=== PATIENT | female | born 1990 | race African-American/Black ===

== ENCOUNTER 2016-08-13 14:40 | Emergency (ER) | payer OTHER ==
[~2016-08-13] VITALS: Ht 167.6 cm; Wt 118.8 kg
[2016-08-13 15:30] VITALS: BP 160/80
[2016-08-13] MEDS ORDERED: CYCL10TA2 PO (16:16)
[2016-08-13] MEDS ORDERED: METH4TAB2 PO (16:16)
[2016-08-13] MEDS ORDERED: GABA-586 PO (16:16)
[2016-08-13] MEDS ORDERED: HYDR-79 PO (16:16)
--- NOTE | 2016-08-13 16:16 | PHYS DOC ---
Past Medical History Past Medical History: Asthma, Hypertension, Hypothyroid Additional Past Medical Histor: OBESE Past Surgical History: Cholecystectomy Alcohol Use: Rarely Drug Use: None Adult General Chief Complaint Chief Complaint: OTHER COMPLAINTS HPI HPI Patient is a 26 year old female who presents with sensation of numbness to the right upper extremity as well as moderate pain to right upper extremity that began last April when she fell down. Patient states she has been following up with a local clinic who referred her to a neck specialist, she states she has an appointment on and she could not wait until then. Patient denies any new injuries. She is requesting a note for work something for her pain. Review of Systems Review of Systems Constitutional: Denies fever or chills [] Eyes: Denies change in visual acuity, redness, or eye pain [] HENT: Denies nasal congestion or sore throat [] Musculoskeletal: Right upper extremity pain and numbness Integument: Denies rash or skin lesions [] Neurologic: Denies headache, focal weakness or sensory changes [] Endocrine: Denies polyuria or polydipsia [] Allergies Allergies Allergies Coded Allergies Type Severity Reaction Last Updated Verified acetaminophen Allergy Intermediate 08/13/16 Yes chocolate flavor Allergy Intermediate hives 08/08/14 No coconut oil Allergy Intermediate swelling 08/08/14 No Physical Exam Physical Exam Constitutional: Well developed, well nourished, no acute distress, non-toxic appearance. [] HENT: Normocephalic, atraumatic, bilateral external ears normal, oropharynx moist, no oral exudates, nose normal. [] Eyes: PERRLA, EOMI, conjunctiva normal, no discharge. [] Neck: Normal range of motion, no tenderness, supple, no stridor. [] Skin: Warm, dry, no erythema, no rash. [] Back: No tenderness, no CVA tenderness. [] Extremities: Right upper extremity with no deformity. Full range of motion to the right upper extremity. Adequate sensation to the right upper extremity. +2 right radial pulse. Cap refill less than 2 seconds the right upper extremity. Adequate ulna radial and medial sensation to the right upper extremity. Neurologic: Alert and oriented X 3, normal motor function, normal sensory function, no focal deficits noted. [] Psychologic: Affect normal, judgement normal, mood normal. [] Current Patient Data Vital Signs Vital Signs Date Time Temp Pulse Resp B/P Pulse Ox O2 Delivery O2 Flow Rate FiO2 08/13/16 15:30 98.3 94 18 100 Room Air 98.3 EKG EKG [] Radiology/Procedures Radiology/Procedures [] Course & Med Decision Making Course & Med Decision Making Pertinent Labs and Imaging studies reviewed. (See chart for details) Patient is in the ED with complaints of what sounds like cervical radiculopathy after an injury she sustained last year April. She's been followed up with a local clinic and has been referred to a neck doctor, she has an appointment on . She would like some pain relief to take until then, she would also like a note for work. She was given pain medicine including gabapentin and a note for work. She was provided return precautions. She was discharged in stable condition. Dragon Disclaimer Dragon Disclaimer This electronic medical record was generated, in whole or in part, using a voice recognition dictation system. Departure Departure Impression: Primary Impression: Cervical radiculopathy Disposition: HOME, SELF-CARE Condition: STABLE Referrals: NO PCP (PCP) ARASH MARTI MD See him if you need another neck doctor Patient Instructions: Cervical Radiculopathy, [id number] Additional Instructions: You were seen for cervical radiculopathy which causes a sensation of numbness and tingling as well as pain especially to the upper extremities. You can apply heat or ice to the neck or the affected region. Take the prescribed medicines as ordered. Follow-up with your own doctor on or the provided doctor. Come back to the emergency room if symptoms worsen. Scripts Cyclobenzaprine Hcl 10 Mg Tablet1 Tab PO TID #30 TAB Prov:KESHAVAGNES AGNES 08/13/16 Methylprednisolone (Medrol)4 Mg Tab.ds.pk1 Pkg PO UD #1 PKG Prov:CHELLESTEPHONAGNES ADHESIVE BANDAGE MAKING OPERATOR 08/13/16 Hydrocodone/Ibuprofen (Hydrocodone-Ibuprofen 7.5-200 )1 Each Tablet1 Tab PO PRN Q6HRS PRN PAIN #10 TAB Ref 0 Prov:KESHAVAGNES ADHESIVE BANDAGE MAKING OPERATOR 08/13/16 Gabapentin 300 Mg [id number] Mg PO TID #30 CAP Prov:AGNES PARR ADHESIVE BANDAGE MAKING OPERATOR 08/13/16 AGNES PARR APRN Aug 13, 2016 16:16
== END 2016-08-13 16:31 | disposition home or self-care (01) ==
LOC: ER 14:44
DX: M54.12 Radiculopathy, cervical region (principal); J45.909 Unspecified asthma, uncomplicated; I10 Essential (primary) hypertension; E03.9 Hypothyroidism, unspecified; E66.9 Obesity, unspecified; Z68.41 Body mass index [BMI] 40.0-44.9, adult; Z91.018 Allergy to other foods; Z88.8 Allergy status to other drugs, medicaments and biological substances
CPT/HCPCS: 99283

== ENCOUNTER 2017-04-06 03:56 | Emergency (ER) | payer OTHER ==
[~2017-04-06] VITALS: Ht 167.6 cm; Wt 122.5 kg
[~2017-04-06 03:56] MED LIST: CYCL10TA2 PO; GABA-586 PO; HYDR-79 PO; METH4TAB2 PO
[2017-04-06] MEDS ORDERED: cloNIDine HCL 0.1 MG TABLET PO ONE (04:15)
--- NOTE | 2017-04-06 04:20 | PHYS DOC ---
Past Medical History Past Medical History: Asthma, Hypertension, Hypothyroid Additional Past Medical Histor: OBESE Past Surgical History: Cholecystectomy Alcohol Use: Rarely Drug Use: None Adult General Chief Complaint Chief Complaint: MULTIPLE COMPLAINTS HPI HPI Patient is a 26 year old F who presents with headache and hypertension. Patient states that throughout the day she didn't have an elevated blood pressures headache and some right arm pain. Patient took her blood pressure this this morning and it was elevated therefore she came the emergency room. In the emergency room patient's blood pressure is 245/128. Patient states the only medication she takes is hydrochlorothiazide and occasionally a muscle relaxer. Patient denies any fevers. Patient denies any neck pain. Patient denies any nausea/vomiting/diarrhea. Patient has no complaints. Review of Systems Review of Systems GEN: Denies fevers, chills, sweats HEENT: Denies blurred vision, sore throat CV: Denies chest pain RESP: Denies shortness of air, cough GI: Denies n/v/d NEURO: Headache MSK: Right arm pain Current Medications Current Medications Current Medications Medications (Trade) Dose Ordered Sig/Suha Start Time Stop Time Status Last Admin Dose Admin Amlodipine Besylate (Norvasc) 5 mg 1X ONCE 04/06/17 07:45 04/06/17 07:46 Clonidine HCl (Catapres) 0.2 mg 1X ONCE 04/06/17 04:15 04/06/17 04:37 DC 04/06/17 04:19 0.2 MG Info (Do NOT chart on this entry -- for MONITORING) 1 each PRN DAILY PRN 04/06/17 06:45 04/08/17 06:44 Iohexol (Omnipaque 300 Mg/ml) 75 ml 1X ONCE 04/06/17 06:30 04/06/17 06:31 DC Iohexol (Omnipaque 350 Mg/ml) 90 ml 1X ONCE 04/06/17 06:15 04/06/17 06:26 DC 04/06/17 06:22 90 ML Allergies Allergies Allergies Coded Allergies Type Severity Reaction Last Updated Verified acetaminophen Allergy Intermediate 08/13/16 Yes chocolate flavor Allergy Intermediate hives 08/08/14 No coconut oil Allergy Intermediate swelling 08/08/14 No Physical Exam Physical Exam GEN.: No apparent distress. Alert and oriented. HEENT: Head is normocephalic, atraumatic NECK: Supple. LUNGS: CTAB. HEART: RRR, S1, S2 present. Peripheral pulses intact ABDOMEN: Soft, nontender. Positive bowel sounds. EXTREMITIES: Without any cyanosis. NEUROLOGIC: Normal speech, normal tone PSYCHIATRIC: Normal affect, normal mood. SKIN: No ulcerations Current Patient Data Vital Signs Vital Signs Date Time Temp Pulse Resp B/P (MAP) Pulse Ox O2 Delivery O2 Flow Rate FiO2 04/06/17 06:36 71 18 168/79 (108) 100 Room Air 04/06/17 04:14 97.4 97.4 Lab Values Laboratory Tests Test 04/06/17 03:15 04/06/17 03:39 04/06/17 04:25 White Blood Count 16.4 x10^3/uL (4.0-11.0) H Red Blood Count 4.55 x10^6/uL (3.50-5.40) Hemoglobin 11.8 g/dL (12.0-15.5) L Hematocrit 37.1 % (36.0-47.0) Mean Corpuscular Volume 82 fL (79-100) Mean Corpuscular Hemoglobin 26 pg (25-35) Mean Corpuscular Hemoglobin Concent 32 g/dL (31-37) Red Cell Distribution Width 16.3 % (11.5-14.5) H Platelet Count 367 x10^3/uL (140-400) Neutrophils (%) (Auto) 72 % (31-73) Lymphocytes (%) (Auto) 20 % (24-48) L Monocytes (%) (Auto) 6 % (0-9) Eosinophils (%) (Auto) 1 % (0-3) Basophils (%) (Auto) 1 % (0-3) Neutrophils # (Auto) 11.9 x10^3uL (1.8-7.7) H Lymphocytes # (Auto) 3.3 x10^3/uL (1.0-4.8) Monocytes # (Auto) 1.0 x10^3/uL (0.0-1.1) Eosinophils # (Auto) 0.2 x10^3/uL (0.0-0.7) Basophils # (Auto) 0.1 x10^3/uL (0.0-0.2) Sodium Level 140 mmol/L (136-145) Potassium Level 3.6 mmol/L (3.5-5.1) Chloride Level 101 mmol/L (98-107) Carbon Dioxide Level 30 mmol/L (21-32) Anion Gap 9 (6-14) Blood Urea Nitrogen 9 mg/dL (7-20) Creatinine 0.7 mg/dL (0.6-1.0) Estimated GFR (Cockcroft-Gault) 122.4 BUN/Creatinine Ratio 13 (6-20) Glucose Level 102 mg/dL (70-99) H Calcium Level 9.8 mg/dL (8.5-10.1) Total Bilirubin 0.6 mg/dL (0.2-1.0) Aspartate Amino Transferase (AST) 17 U/L (15-37) Alanine Aminotransferase (ALT) 29 U/L (14-59) Alkaline Phosphatase 102 U/L (46-116) Troponin I Quantitative < 0.017 ng/mL (0.000-0.055) Total Protein 8.1 g/dL (6.4-8.2) Albumin 4.0 g/dL (3.4-5.0) Albumin/Globulin Ratio 1.0 (1.0-1.7) POC Urine HCG, Qualitative Hcg negative (Negative) Urine Collection Type Unknown Urine Color Yellow Urine Clarity Clear Urine pH 6.0 Urine Specific [place] 1.010 Urine Protein Negative mg/dL (NEG-TRACE) Urine Glucose (UA) Negative mg/dL (NEG) Urine Ketones (Stick) Negative mg/dL (NEG) Urine Blood Negative (NEG) Urine Nitrite Negative (NEG) Urine Bilirubin Negative (NEG) Urine Urobilinogen Dipstick 0.2 mg/dL (0.2 mg/dL) Urine Leukocyte Esterase Negative (NEG) Urine RBC Occ /HPF (0-2) Urine WBC 1-4 /HPF (0-4) Urine Squamous Epithelial Cells Mod /LPF Urine Bacteria Moderate /HPF (0-FEW) Urine Mucus Slight /LPF Laboratory Tests 04/06/17 03:15 Laboratory Tests 04/06/17 03:15 EKG EKG 0412: EKG shows normal sinus rhythm rate of 75 no STEMI[] Radiology/Procedures Radiology/Procedures CT head unremarkable[] Impressions: [facility] [address] [place], [place] [id number] IMAGING REPORT Signed PATIENT: ELAINE PIEDRA ACCOUNT: [id number] : 1990 LOCATION: ER AGE: 26 SEX: F EXAM STATUS: REG ER ORD. PHYSICIAN: JHON DE DIOS DO REASON: chest pain, r/o dissection PROCEDURE: CT ANGIOGRAPHY CHEST CT arteriogram of the chest before and after contrast. HISTORY: Chest pain CT arteriogram was done using 90 mL of Isovue-370 contrast. Coronal MIP images were reconstructed as were three-dimensional reconstructions using the workstation. Precontrast images show no intramural hematoma in the aorta. The aorta is normal in diameter. Visualized portions liver and spleen are normal. Lungs are free of infiltrates. There is no effusion. Postcontrast images show the thyroid is homogeneous. There is no mediastinal adenopathy. The aorta is normal in appearance without an aneurysm or dissection. The origins of the great vessels are patent. Celiac and superior mesenteric arteries are patent in the upper abdomen. Patient's had a cholecystectomy. Adrenal glands are normal. A pulmonary embolus is not identified. IMPRESSION: 1. No aortic aneurysm or dissection. 2. Lungs are free of infiltrates. 3. Negative for pulmonary embolus. PQRS Compliance Statement: One or more of the following individualized dose reduction techniques were utilized for this examination: 1. Automated exposure control 2. Adjustment of the mA and/or kV according to patient size 3. Use of iterative reconstruction technique Electronically signed by: Jevon Ibarra MD (04/06/2017 7:11 AM) [facility] DICTATED and SIGNED BY: JEVON IBARRA MD DATE: 04/06/17705 CC: TALA JESUS DO; NO PCP; JHON DE DIOS DO ~ Course & Med Decision Making Course & Med Decision Making Pertinent Labs and Imaging studies reviewed. (See chart for details) 0600: Patient was signed out to Dr. Jesus to follow-up on CT scan and final disposition, patient was updated on plan to get the CT angios the chest to rule out dissection Patient's imaging did not reveal any concerning findings. Patient resting comfortably with resolution of symptoms at time of my arrival in the ED. Patient 's blood pressure initially improved 130s over 80s, after receiving Catapres, and then to 160s over 70s. Heart rate is in the 80s and 70s, patient is resting comfortably with continued full resolution of symptoms. Consistent with hypertension. Patient states that she has been under significant stress, and believes that was the cause for her blood pressure to be elevated, she states she is taking hydrochlorothiazide as directed, but as stated was only adjusted about 3 days ago. Is taking 25 mg once daily. After discussion at bedside, regarding initiating an additional medication in the ED, versus waiting to follow-up with primary care provider, patient is agreeable with plan to start low-dose Norvasc in addition to her hydrochlorothiazide, she states that she'll be able to follow-up with her primary care provider next week, has Saturday and Saturday off. Also noted to have leukocytosis of 16.4 in the ED, no left shift or bandemia, other cell lines are normal, did discuss with patient, she has no infectious symptoms, or identification infectious source on her labs and imaging. 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 Patient to discuss these results with her primary care provider, to return to the ED for concerning symptoms as discussed. Patient given first dose of Norvasc 5 mg without issue in the ED. We discussed concerning symptoms that prompt return to the emergency department, and stress reduction strategies. Patient voiced understanding and agreement with plan as stated, discharged home in stable condition with plan, precautions, and prescription as stated above. Dragon Disclaimer Dragon Disclaimer This electronic medical record was generated, in whole or in part, using a voice recognition dictation system. Departure Impression: Primary Impression: Hypertension Additional Impression: Leukocytosis Disposition: HOME, SELF-CARE Condition: IMPROVED Referrals: NO PCP (PCP) Scripts Amlodipine Besylate (NORVASC) 5 Mg Tablet 1 TAB PO DAILY, #15 TAB 0 Refills Prov: TALA JESUS DO 04/06/17 Departure Departure Impression: Primary Impression: Hypertension Additional Impression: Leukocytosis Disposition: HOME, SELF-CARE Condition: IMPROVED Referrals: NO PCP (PCP) Scripts Amlodipine Besylate (NORVASC) 5 Mg Tablet 1 TAB PO DAILY, #15 TAB 0 Refills Prov: TALA JESUS DO 04/06/17 Problem Qualifiers JHON DE DIOS DO Apr 06, 2017 04:20 ANN MARIETALA WADDELL DO Apr 06, 2017 07:47
[2017-04-06 04:24] LABS: BASO # 0.1 x10^3/uL (0.0-0.2); BASO % 1 % (0-3); EOS % 1 % (0-3); HEMATOCRIT 37.1 % (36.0-47.0); HEMOGLOBIN 11.8 g/dL (12.0-15.5); LYMPH # 3.3 x10^3/uL (1.0-4.8); LYMPH % 20 % (24-48); MEAN CORPUSCULAR HEMOGLOBIN 26 pg (25-35); MEAN CORPUSCULAR HGB CONC 32 g/dL (31-37); MEAN CORPUSCULAR VOLUME 82 fL (79-100); MONO % 6 % (0-9); NEUT % 72 % (31-73); PLATELET COUNT 367 x10^3/uL (140-400); RED BLOOD COUNT 4.55 x10^6/uL (3.50-5.40); RED CELL DISTRIBUTION WIDTH 16.3 % (11.5-14.5); WHITE BLOOD COUNT 16.4 x10^3/uL (4.0-11.0)
[2017-04-06 04:35] LABS: CALCIUM 9.8 mg/dL (8.5-10.1); CREATININE 0.7 mg/dL (0.6-1.0); GFR 122.4; POTASSIUM 3.6 mmol/L (3.5-5.1)
[2017-04-06 04:41] LABS: TOTAL BILIRUBIN 0.6 mg/dL (0.2-1.0); TOTAL PROTEIN 8.1 g/dL (6.4-8.2)
--- NOTE | 2017-04-06 05:00 | RAD ---
INDICATION: headache; hypertension COMPARISON: None. TECHNIQUE: Axial CT images obtained through the head without intravenous contrast. One or more of the following individualized dose reduction techniques were utilized for this examination: 1. Automated exposure control; 2. Adjustment of the mA and/or kV according to patient size; 3. Use of iterative reconstruction technique. FINDINGS: No intracranial hemorrhage. No midline shift. Basal cisterns patent. Ventricles and sulci are unremarkable. No acute osseous abnormality. Orbits and paranasal sinuses unremarkable. IMPRESSION: 1. No acute intracranial hemorrhage. Electronically signed by: Hussain Phillip MD (04/06/2017 4:56 AM) [facility]
[2017-04-06 05:04] LABS: BILIRUBIN,URINE NEGATIVE (NEG); GLUCOSE,URINE NEGATIVE (NEG); NITRITE,URINE NEGATIVE (NEG); PROTEIN,URINE NEGATIVE (NEG-TRACE); UROBILINOGEN,URINE 0.2 mg/dL (0.2 mg/dL)
[2017-04-06 05:15] LABS: BACTERIA,URINE MODERATE /HPF (0-FEW); RBC,URINE OCC /HPF (0-2); SQUAMOUS EPITHELIAL CELL,UR MOD /LPF
[2017-04-06] MEDS ORDERED: IOHEXOL 350 MG/ML 100 ML VIAL. IV ONE (06:15)
[2017-04-06] MEDS ORDERED: IOHEXOL 300 MG/ML 75 ML VIAL IV ONE (06:30)
[2017-04-06] MEDS ORDERED: CONTRAST GIVEN MC PRN (06:45)
--- NOTE | 2017-04-06 07:14 | RAD ---
CT arteriogram of the chest before and after contrast. HISTORY: Chest pain CT arteriogram was done using 90 mL of Isovue-370 contrast. Coronal MIP images were reconstructed as were three-dimensional reconstructions using the workstation. Precontrast images show no intramural hematoma in the aorta. The aorta is normal in diameter. Visualized portions liver and spleen are normal. Lungs are free of infiltrates. There is no effusion. Postcontrast images show the thyroid is homogeneous. There is no mediastinal adenopathy. The aorta is normal in appearance without an aneurysm or dissection. The origins of the great vessels are patent. Celiac and superior mesenteric arteries are patent in the upper abdomen. Patient's had a cholecystectomy. Adrenal glands are normal. A pulmonary embolus is not identified. IMPRESSION: 1. No aortic aneurysm or dissection. 2. Lungs are free of infiltrates. 3. Negative for pulmonary embolus. PQRS Compliance Statement: One or more of the following individualized dose reduction techniques were utilized for this examination: 1. Automated exposure control 2. Adjustment of the mA and/or kV according to patient size 3. Use of iterative reconstruction technique Electronically signed by: Jevon Ibarra MD (04/06/2017 7:11 AM) [facility]
--- NOTE | 2017-04-06 07:17 | RAD ---
Portable chest, 04/16/2017: History: Hypertension The heart size and pulmonary vascularity are normal. The lungs are clear. There is no evidence of pleural fluid. IMPRESSION: No acute cardiopulmonary abnormality is detected.
[2017-04-06] MEDS ORDERED: AMLO5TAB4 PO (07:39)
[2017-04-06] MEDS ORDERED: amLODIPine BESYLATE 5 MG TABLET PO ONE (07:45)
[2017-04-06 08:00] VITALS: BP 144/92
--- NOTE | 2017-04-06 10:48 | EKG ---
[facility] [address] [place] [address] Test Date: 2017-04-06 Test Time: 04:10:03 Pat Name: ELAINE PIEDRA Department: Room: Gender: F Dump Grader: : 1990 Requested By: JHON DE DIOS Order Number: [id number] Reading MD: Anjelica Long Measurements Intervals [place] Rate: 75 P: 42 RI: 172 QRS: 4 QRSD: 88 T: 4 QT: 310 QTc: 348 Interpretive Statements SINUS RHYTHM NORMAL ECG Electronically Signed On 04-07-2017 12:56:43 CDT by Anjelica Long
== END 2017-04-06 08:08 | disposition home or self-care (01) ==
LOC: ER 03:56
DX: I10 Essential (primary) hypertension (principal); D72.829 Elevated white blood cell count, unspecified; M79.601 Pain in right arm; J45.909 Unspecified asthma, uncomplicated; E03.9 Hypothyroidism, unspecified; E66.9 Obesity, unspecified; Z68.41 Body mass index [BMI] 40.0-44.9, adult; Z90.49 Acquired absence of other specified parts of digestive tract; Z88.6 Allergy status to analgesic agent; Z91.02 Food additives allergy status; Z91.018 Allergy to other foods
CPT/HCPCS: 36415; 70450; 71010; 71275; 80053; 81001; 81025; 84484; 85025; 87086; 93005; 99285; Q9967

== ENCOUNTER 2017-05-10 20:08 | Emergency (ER) | payer OTHER ==
[~2017-05-10 20:08] MED LIST changes: +AMLO5TAB4 PO
[2017-05-10 20:31] VITALS: BP 149/113
--- NOTE | 2017-05-10 20:57 | PHYS DOC ---
Past Medical History Past Medical History: Asthma, Hypertension, Hypothyroid Additional Past Medical Histor: OBESE Past Surgical History: Cholecystectomy Alcohol Use: Rarely Drug Use: None Adult General Chief Complaint Chief Complaint: Neck Pain HPI HPI Patient is a 26 year old female with history of hypertension, hypothyroidism, who presents today with mild to moderate pain from her neck to her mid and low back into her bilateral lower extremities. Patient states this pain began one year ago after injury at work and got triggered today after another injury. 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 She states the pain is worse on ambulation. Patient denies any loss of bowel bladder function. She states last time she followed up with workman comp and they did not do much but released her back to work. 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 Patient denies any numbness or tingling to bilateral lower extremities. Review of Systems Review of Systems Constitutional: Denies fever or chills [] Eyes: Denies change in visual acuity, redness, or eye pain [] HENT: Denies nasal congestion or sore throat [] Respiratory: Denies cough or shortness of breath [] Cardiovascular: No additional information not addressed in HPI [] GI: Denies abdominal pain, nausea, vomiting, bloody stools or diarrhea [] : Denies dysuria or hematuria [] Musculoskeletal: back pain Integument: Denies rash or skin lesions [] Neurologic: Denies headache, focal weakness or sensory changes [] Allergies Allergies Allergies Coded Allergies Type Severity Reaction Last Updated Verified acetaminophen Allergy Intermediate 08/13/16 Yes chocolate flavor Allergy Intermediate hives 08/08/14 No coconut oil Allergy Intermediate swelling 08/08/14 No Physical Exam Physical Exam Constitutional: Well developed, well nourished, no acute distress, non-toxic appearance. [] HENT: Normocephalic, atraumatic, bilateral external ears normal, oropharynx moist, no oral exudates, nose normal. [] Eyes: PERRLA, EOMI, conjunctiva normal, no discharge. [] Neck: Normal range of motion, diffuse paraspinal muscle tenderness to posterior cervical spine, no midline cervical spine tenderness, supple, no stridor. [] Cardiovascular:Heart rate regular rhythm, no murmur [] Lungs & Thorax: Bilateral breath sounds clear to auscultation [] Abdomen: Bowel sounds normal, soft, no tenderness, no masses, no pulsatile masses. [] Skin: Warm, dry, no erythema, no rash. [] Back: Diffuse paraspinal muscle tenderness to thoracic and lumbar spine, no midline thoracic or lumbar spine tenderness, no CVA tenderness. [] Extremities: No tenderness, no cyanosis, no clubbing, ROM intact, no edema. [] Neurologic: Alert and oriented X 3, normal motor function, normal sensory function, no focal deficits noted. [] Psychologic: Affect normal, judgement normal, mood normal. [] Current Patient Data Vital Signs Vital Signs Date Time Temp Pulse Resp B/P (MAP) Pulse Ox O2 Delivery O2 Flow Rate FiO2 05/10/17 20:31 92 18 149/113 (125) 98 Room Air 05/10/17 20:21 98.3 98.3 EKG EKG [] Radiology/Procedures Radiology/Procedures [] Course & Med Decision Making Course & Med Decision Making Pertinent Labs and Imaging studies reviewed. 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 Patient has known history of back and neck pain. Patient's symptoms today are not concerning for cauda equina syndrome. She appears to have strained her neck and back. We talked about radiology studies. She states she is trying to be . We avoided any radiology studies due to this. I recommended she follows up with her workman comp doctor as well as her PCP. Her blood pressure was 140s over 100s. She has history of hypertension and has not taken her blood pressure medicine. Recommended patient to make sure she takes her BP medicine as soon as she gets home. Dragon Disclaimer Dragon Disclaimer This electronic medical record was generated, in whole or in part, using a voice recognition dictation system. Departure Departure Impression: Primary Impression: Essential hypertension Additional Impressions: Cervical strain, acute Acute thoracic myofascial strain Acute lumbar myofascial strain Sciatica of right side Sciatica of left side Disposition: HOME, SELF-CARE Condition: STABLE Referrals: NO PCP (PCP) Follow-up with your doctor and workman comp doctor in a week Patient Instructions: Cervical Strain and Sprain with [facility], Lumbosacral Strain, Sciatica with [facility], Thoracic Strain, [id number] Additional Instructions: You were seen for muscle strain as well as neck mid and low back pain after restraining somebody. Please apply ice or heat to the affected areas. Take it slow for the next 3 days. Do not lift anything greater than a gallon of milk for 3 days and or anything greater than 40 pounds for one week. Try and follow- up with the workman comp doctor as well as a primary care doctor next week. Also see your doctor for high blood pressure next week. Scripts Methylprednisolone (MEDROL) 4 Mg Tab.ds.pk 1 PKG PO UD, #1 PKG Prov: AGNES PARR APRN 05/10/17 Cyclobenzaprine Hcl (CYCLOBENZAPRINE HCL) 10 Mg Tablet 1 TAB PO TID, #30 TAB Prov: AGNES PARR APRN 05/10/17 Problem Qualifiers Additional Impressions: Cervical strain, acute Encounter type: initial encounter Qualified Codes: S16.1XXA - Strain of muscle, fascia and tendon at neck level, initial encounter Acute thoracic myofascial strain Encounter type: initial encounter Qualified Codes: S29.019A - Strain of muscle and tendon of unspecified wall of thorax, initial encounter Acute lumbar myofascial strain Encounter type: initial encounter Qualified Codes: S39.012A - Strain of muscle, fascia and tendon of lower back, initial encounter AGNES PARR APRN May 10, 2017 20:57
[2017-05-10] MEDS ORDERED: METH4TAB2 PO (21:21)
[2017-05-10] MEDS ORDERED: CYCL10TA2 PO (21:21)
== END 2017-05-10 21:33 | disposition home or self-care (01) ==
LOC: ER 20:08
DX: S16.1XXA Strain of muscle, fascia and tendon at neck level, initial encounter (principal); S39.012A Strain of muscle, fascia and tendon of lower back, initial encounter; S29.019A Strain of muscle and tendon of unspecified wall of thorax, initial encounter; M79.604 Pain in right leg; M79.605 Pain in left leg; I10 Essential (primary) hypertension; J45.909 Unspecified asthma, uncomplicated; E03.9 Hypothyroidism, unspecified; Z90.49 Acquired absence of other specified parts of digestive tract; Z88.6 Allergy status to analgesic agent; Z91.018 Allergy to other foods; X50.9XXA Other and unspecified overexertion or strenuous movements or postures, initial encounter; Y93.89 Activity, other specified; Y99.0 Civilian activity done for income or pay; Y92.69 Other specified industrial and construction area as the place of occurrence of the external cause
CPT/HCPCS: 99283